=== PATIENT | male | born 1990 | race Caucasian/White ===

== ENCOUNTER 2018-11-03 11:39 | Emergency (ER) | payer SELFPAY ==
[~2018-11-03] VITALS: Ht 157.5 cm; Wt 63.5 kg
[2018-11-03 11:45] VITALS: BP_SYST 148
[2018-11-03 12:52] VITALS: BP_SYST 148
== END 2018-11-03 12:30 | disposition home or self-care (01) ==
LOC: SED 11:39
DX: L30.9 Dermatitis, unspecified (principal)
CPT/HCPCS: 99281